=== PATIENT | female | born 1945 | race Caucasian/White ===

== ENCOUNTER 2017-10-07 19:46 | Inpatient (IN) | payer MEDICARE, MEDICAID ==
[2017-10-07 20:36] LABS: % EOSINOPHILS 0.6 % (0.0-5.0); % LYMPHOCYTES 17.8 % (20.0-50.0); % MONOCYTES 9.5 % (2.0-10.0); % NEUTROPHILS 72.1 % (40.0-80.0); EOSINOPHILE ABSOLUTE 0.1 Th/cmm (0.1-0.4); HEMATOCRIT 44.5 % (41.0-60); HEMOGLOBIN 14.8 gm/dL (12-16); MEAN CELL VOLUME 87.5 fl (81-100); MEAN CORPUSCULAR HEMOGLOBIN 29.1 pg (27.0-31.0); MEAN CORPUSCULAR HGB CONC 33.3 pg (28.0-36.0); MEAN PLATELET VOLUME 7.9 fl; MONOCYTE ABSOLUTE 1.1 Th/cmm (0.3-1.0); NEUTROPHILE ABSOLUTE 8.1 Th/cmm (1.8-8.0); PLATELET COUNT 298 Th/cmm (150-400); RED BLOOD COUNT 5.09 Mil/cmm (3.80-5.20); RED CELL DISTRIBUTION WIDTH 13.4 % (11.5-20.0); WHITE BLOOD COUNT 11.3 Th/cmm (4.8-10.8)
--- NOTE | 2017-10-07 20:58 | ED Physician Chart ---
ED Chief Complaint/HPI - Patient Information Date Seen:: 10/07/17 Time Seen:: 19:57 Chief Complaint:: Increased agitation History of Present Illness:: 72 yo female was brought from SNF to ER for evaluation of increased agitation and aggressiveness towards staff. Patient recently had negative venous u/s of bilateral lower extremities on 10/03/17. Allergies:: Allergies Allergy/AdvReac Type Severity Reaction Status Date / Time NSAIDS (Non-Steroidal Allergy Verified 10/07/17 20:02 Anti-Inflamma Penicillins Allergy Verified 10/07/17 20:02 Vitals:: Vital Signs - 8 hr 10/07/17 19:50 Temp 98.8 F HR 81 RR 18 BP 109/71 O2 Sat % 95 ED Review of Systems - Review of Systems General/Constitutional: No fever, No chills Skin: No bruising Head: No headache Eyes: No pain ENT: No nasal drainage Neck: No neck pain Cardio Vascular: No chest pain Pulmonary: No SOB, No cough GI: No nausea, No vomiting Musculoskeletal: Bone or joint pain, Back pain Neurological: No focal symptoms, Confusion ED Past Medical History - Past Medical History Past Medical History: HTN, PUD/GERD Social History: Non Smoker, No Alcohol, No Drug Use Family Medical History - Family Member Mother History Unknown: Yes ED Physical Exam - Physical Examination General/Constitutional: Awake Head: Atraumatic Eyes: PERRL Skin: No ecchymosis ENMT: Nasal exam nl Neck: No nuchal rigidity Respiratory: No Wheeze/Rhonchi/Rales Cardio Vascular: RRR, No murmur, gallop, rubs, NL S1 S2 GI: No tenderness/rebounding/guarding Extremities: normal strength in all extremities Neuro/Psych: Normal motor strength Other Neuro/Psych comments:: Oriented to self and place ED Labs/Radiology/EKG Results - Lab Results Results: Laboratory Tests 10/07/17 10/07/17 20:28 20:28 WBC 11.3 H RBC 5.09 Hgb 14.8 Hct 44.5 MCV 87.5 MCH 29.1 MCHC Differential 33.3 RDW 13.4 Plt Count 298 MPV 7.9 Neutrophils % 72.1 Lymphocytes % 17.8 L Monocytes % 9.5 Eosinophils % 0.6 Basophils % 0.0 B-Natriuretic Peptide 15.3 Laboratory Last Values WBC 11.3 Th/cmm (4.8-10.8) H 10/07/17 20: RBC 5.09 Mil/cmm (3.80-5.20) 10/07/17 20: Hgb 14.8 gm/dL (12-16) 10/07/17 20: Hct 44.5 % (41.0-60) 10/07/17 20: MCV 87.5 fl (81-100) 10/07/17: MCH 29.1 pg (27.0-31.0) 10/07/17 20: MCHC Differential 33.3 pg (28.0-36.0) 10/07/17: RDW 13.4 % (11.5-20.0) 10/07/17: Plt Count 298 Th/cmm (150-400) 10/07/17 20: MPV 7.9 fl 10/07/17 20: Neutrophils % 72.1 % (40.0-80.0) 10/07/17: Lymphocytes % 17.8 % (20.0-50.0) L 10/07/17: Monocytes % 9.5 % (2.0-10.0) 10/07/17: Eosinophils % 0.6 % (0.0-5.0) 10/07/17: Basophils % 0.0 % (0.0-2.0) 10/07/17 20: Sodium 142 mEq/L (136-145) 10/07/17: Potassium 3.7 mEq/L (3.5-5.1) 10/07/17: Chloride 104 mEq/L (98-107) 10/07/17 20: Carbon Dioxide 18.7 mEq/L (21.0-31.0) L 10/07/17: Anion Gap 23.0 (7.0-16.0) H 10/07/17 20: BUN 10 mg/dL (7-25) 10/07/17 20: Creatinine 0.7 mg/dL (0.6-1.2) 10/07/17 20: Est GFR ( Amer) TNP 10/07/17 20: Est GFR (Non-Af Amer) TNP 10/07/17 20:28 BUN/Creatinine Ratio 14.3 10/07/17 20: Glucose 121 mg/dL (70-105) H 10/07/17 20: Calcium 10.3 mg/dL (8.6-10.3) 10/07/17 20: Total Bilirubin 0.4 mg/dL (0.3-1.0) 10/07/17 20: AST 24 U/L (13-39) 10/07/17: ALT 15 U/L (7-52) 10/07/17 20: Alkaline Phosphatase 107 U/L (34-104) H 10/07/17 20: Troponin I 0.01 ng/mL (0.01-0.05) 10/07/17: B-Natriuretic Peptide 15.3 pg/mL (5.0-100.0) 10/07/17 20: Total Protein 7.4 gm/dL (6.0-8.3) 10/07/17: Albumin 4.5 gm/dL (3.7-5.3) 10/07/17 20: Globulin 2.9 gm/dL 10/07/17 20: Albumin/Globulin Ratio 1.6 (1.0-1.8) 10/07/17 20: Urine Source RANDOM 10/07/17 20:35 Urine Color YELLOW 10/07/17 20:35 Urine Clarity CLEAR (CLEAR) 10/07/17 20: Urine pH 5.5 (4.6 - 8.0) 10/07/17 20:35 Ur Specific [place] >= 1.030 (1.005-1.030) 10/07/17 20:35 Urine Protein NEGATIVE mg/dL (NEGATIVE) 10/07/17 20:35 Urine Glucose (UA) NEGATIVE mg/dL (NEGATIVE) 10/07/17 20: Urine Ketones NEGATIVE mg/dL (NEGATIVE) 10/07/17 20: Urine Blood NEGATIVE (NEGATIVE) 10/07/17 20:35 Urine Nitrate NEGATIVE (NEGATIVE) 10/07/17 20:35 Urine Bilirubin NEGATIVE (NEGATIVE) 10/07/17 20:35 Urine Urobilinogen 0.2 E.U./dL (0.2 - 1.0) 10/07/17 20:35 Ur Leukocyte Esterase NEGATIVE (NEGATIVE) 10/07/17 20:35 Urine RBC 0-2 /hpf (0-5) 10/07/17 20:35 Urine WBC 2-5 /hpf (0-5) 10/07/17 20:35 Ur Epithelial Cells FEW /lpf (FEW) 10/07/17 20:35 Urine Bacteria FEW /hpf (NONE SEEN) 10/07/17 20:35 Urine Mucus MODERATE /lpf (FEW) 10/07/17 20:35 - Radiology Results Results: CXR: no focal consolidation - EKG Interpretations EKG Time:: 20:00 Rate & Rhythm: 76 bpm, NSR [place]: normal P axis Intervals: [place] 159, QRS 80 ED Assessment - Assessment General Assessment: Hypertension Leukocytosis with unknown source Psychosis Assessment/Comments:: CBC, CMP, Trop I, BNP, UA CXR, EKG Ciprofloxacin 500mg po x 1 Admit to [facility] for further evaluation and management ED Septic Shock - . Is Septic Shock (SBP<90, OR Lactate>4 mmol\L) present?: No - <6hrs of presentation: Vital Signs: Vital Signs - 8 hr 10/07/17 19:50 Temp 98.8 F HR 81 RR 18 BP 109/71 O2 Sat % 95 ED Reassessment (Disposition) - Reassessment Reassessment Condition:: Improved - Patient Disposition Discharge/Transfer:: [facility] w/in this hosp Admitting Medical Physician:: Daniel Frances Admitting Psych Physician:: Araseli Aparicio
[2017-10-07 21:26] LABS: URINE SOURCE RANDOM
[2017-10-07 21:29] LABS: URINE BILIRUBIN NEGATIVE (NEGATIVE); URINE BLOOD NEGATIVE (NEGATIVE); URINE GLUCOSE (UA) NEGATIVE (NEGATIVE); URINE KETONE NEGATIVE (NEGATIVE); URINE LEUKOCYTE ESTERASE NEGATIVE (NEGATIVE); URINE NITRATE NEGATIVE (NEGATIVE); URINE PH 5.5 (4.6 - 8.0); URINE PROTEIN NEGATIVE (NEGATIVE); URINE UROBILINOGEN 0.2 E.U./dL (0.2 - 1.0)
[2017-10-07 21:32] LABS: URINE CLARITY CLEAR (CLEAR); URINE COLOR YELLOW; URINE MICROSCOPIC INDICATED? YES
[2017-10-07 21:43] LABS: URINE BACTERIA FEW /hpf (NONE SEEN); URINE EPITHELIAL CELLS FEW /lpf (FEW); URINE RBC 0-2 /hpf (0-5)
[2017-10-07 23:34] LABS: ALB/GLOB RATIO 1.6 (1.0-1.8); ALBUMIN 4.5 gm/dL (3.7-5.3); ALKALINE PHOSPHATASE 107 U/L (34-104); BILIRUBIN,TOTAL 0.4 mg/dL (0.3-1.0); BUN - UREA NITROGEN 10 mg/dL (7-25); CALCIUM SERUM 10.3 mg/dL (8.6-10.3); CREATININE - SERUM 0.7 mg/dL (0.6-1.2); GLUCOSE 121 mg/dL (70-105); SGOT 24 U/L (13-39); SGPT/ALT 15 U/L (7-52); TOTAL PROTEIN,SERUM 7.4 gm/dL (6.0-8.3)
[2017-10-08 01:18] LABS: CARBON DIOXIDE 18.7 mEq/L (21.0-31.0); CHLORIDE 104 mEq/L (98-107); POTASSIUM SERUM 3.7 mEq/L (3.5-5.1); SODIUM SERUM 142 mEq/L (136-145)
[2017-10-08 01:58] VITALS: BP 132/93
[2017-10-08] MEDS ORDERED: Haloperidol Lactate 5 mg/mL 1mL Vial IM PRN (05:40)
[2017-10-08] MEDS ORDERED: Fleet Enema 135 mL RC PRN (05:40)
[2017-10-08] MEDS ORDERED: Magnesium Hydroxide (MOM) 30 mL UDC PO PRN (05:40)
--- NOTE | 2017-10-08 08:29 | Diagnostic Imaging Report ---
Portable chest x-ray HISTORY: Shortness of breath The exam is limited due to patient rotation in a very poor inspiration. Despite these factors, the heart appears to be somewhat enlarged. No focal pulmonary processes. IMPRESSION: 1. Limited exam 2. No definite acute focal pulmonary processes
--- NOTE | 2017-10-08 09:06 | History and Physical ---
History of Present Illness - HPI Chief Complaint: psychosis HPI: 72 y/o female who presents to [facility] ER for change in behavior with increased agitation and aggressiveness towards staff. Patient initially labwork revealed the following .... - Lab Results Results: Laboratory Tests 10/07/17 10/07/17 20:28 20:28 WBC 11.3 H RBC 5.09 Hgb 14.8 Hct 44.5 MCV 87.5 MCH 29.1 MCHC Differential 33.3 RDW 13.4 Plt Count 298 MPV 7.9 Neutrophils % 72.1 Lymphocytes % 17.8 L Monocytes % 9.5 Eosinophils % 0.6 Basophils % 0.0 B-Natriuretic Peptide 15.3 Laboratory Last Values WBC 11.3 Th/cmm (4.8-10.8) H 10/07/17 20:28 RBC 5.09 Mil/cmm (3.80-5.20) 10/07/17 20:28 Hgb 14.8 gm/dL (12-16) 10/07/17 20:28 Hct 44.5 % (41.0-60) 10/07/17 20:28 MCV 87.5 fl (81-100) 10/07/17 20:28 MCH 29.1 pg (27.0-31.0) 10/07/17 20:28 MCHC Differential 33.3 pg (28.0-36.0) 10/07/17 20:28 RDW 13.4 % (11.5-20.0) 10/07/17 20:28 Plt Count 298 Th/cmm (150-400) 10/07/17 20:28 MPV 7.9 fl 10/07/17 20:28 Neutrophils % 72.1 % (40.0-80.0) 10/07/17 20:28 Lymphocytes % 17.8 % (20.0-50.0) L 10/07/17 20:28 Monocytes % 9.5 % (2.0-10.0) 10/07/17 20:28 Eosinophils % 0.6 % (0.0-5.0) 10/07/17 20: Basophils % 0.0 % (0.0-2.0) 10/07/17 20:28 Sodium 142 mEq/L (136-145) 10/07/17 20:28 Potassium 3.7 mEq/L (3.5-5.1) 10/07/17 20:28 Chloride 104 mEq/L (98-107) 10/07/17 20:28 Carbon Dioxide 18.7 mEq/L (21.0-31.0) L 10/07/17 20:28 Anion Gap 23.0 (7.0-16.0) H 10/07/17 20:28 BUN 10 mg/dL (7-25) 10/07/17 20:28 Creatinine 0.7 mg/dL (0.6-1.2) 10/07/17 20:28 Est GFR ( Amer) TNP 10/07/17 20:28 Est GFR (Non-Af Amer) TNP 10/07/17 20: BUN/Creatinine Ratio 14.3 10/07/17 20: Glucose 121 mg/dL (70-105) H 10/07/17 20: Calcium 10.3 mg/dL (8.6-10.3) 10/07/17 20: Total Bilirubin 0.4 mg/dL (0.3-1.0) 10/07/17 20:28 AST 24 U/L (13-39) 10/07/17 20:28 ALT 15 U/L (7-52) 10/07/17 20:28 Alkaline Phosphatase 107 U/L (34-104) H 10/07/17 20:28 Troponin I 0.01 ng/mL (0.01-0.05) 10/07/17 20: B-Natriuretic Peptide 15.3 pg/mL (5.0-100.0) 10/07/17 20:28 Total Protein 7.4 gm/dL (6.0-8.3) 10/07/17 20:28 Albumin 4.5 gm/dL (3.7-5.3) 10/07/17 20: Globulin 2.9 gm/dL 10/07/17 20: Albumin/Globulin Ratio 1.6 (1.0-1.8) 10/07/17 20:28 Urine Source RANDOM 10/07/17 20:35 Urine Color YELLOW 10/07/17 20:35 Urine Clarity CLEAR (CLEAR) 10/07/17 20:35 Urine pH 5.5 (4.6 - 8.0) 10/07/17 20:35 Ur Specific [place] >= 1.030 (1.005-1.030) 10/07/17 20:35 Urine Protein NEGATIVE mg/dL (NEGATIVE) 10/07/17 20:35 Urine Glucose (UA) NEGATIVE mg/dL (NEGATIVE) 10/07/17 20:35 Urine Ketones NEGATIVE mg/dL (NEGATIVE) 10/07/17 20:35 Urine Blood NEGATIVE (NEGATIVE) 10/07/17 20:35 Urine Nitrate NEGATIVE (NEGATIVE) 10/07/17 20:35 Urine Bilirubin NEGATIVE (NEGATIVE) 10/07/17 20:35 Urine Urobilinogen 0.2 E.U./dL (0.2 - 1.0) 10/07/17 20:35 Ur Leukocyte Esterase NEGATIVE (NEGATIVE) 10/07/17 20:35 Urine RBC 0-2 /hpf (0-5) 10/07/17 20:35 Urine WBC 2-5 /hpf (0-5) 10/07/17 20:35 Ur Epithelial Cells FEW /lpf (FEW) 10/07/17 20:35 Urine Bacteria FEW /hpf (NONE SEEN) 10/07/17 20:35 Urine Mucus MODERATE /lpf (FEW) 10/07/17 20:35 - Radiology Results Results: CXR: no focal consolidation - EKG Interpretations EKG Time:: 20:00 Rate & Rhythm: 76 bpm, NSR [place]: normal P axis Intervals: [place] 159, QRS 80 Patient was subsequently admitted to [facility] for further evaluation and treatment. 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 Pertinent Hx GI: Report: GERD, Peptic Ulcer Musculoskeletal: Report: No Pertinent Hx Rheumatologic: Report: No pertinent Hx Infectious Disease: Report: No Pertinent Hx Renal/: Report: No Pertinent Hx Endocrine: Report: No Pertinent Hx Dermatology: Report: No Pertinent Hx Family Medical History - Family Member Mother History Unknown: Yes Social History Smoke: No Alcohol: None Drugs: None Lives: Skilled Nursing - Medications Home Medications: Home Medication Medication Instructions Recorded Type Acetaminophen [Tylenol] 650 mg PO Q4HR PRN 10/07/17 History Bisacodyl [Dulcolax 10 Mg Supp] 10 mg RC DAILY PRN 10/07/17 History Calcium Carbonate [Tums] 1 tab PO Q4HR PRN 10/07/17 History Carisoprodol [Soma] 350 mg PO Q12HR PRN 10/07/17 History Fleet Enema 1 dose RC DAILY PRN 10/07/17 History Haloperidol Lactate [Haldol] 5 mg IM BID PRN 10/07/17 History Hydrocodone/APAP 10 mg/325 mg 1 tab PO Q6H PRN 10/07/17 History [[place] 10 mg/325 mg] Magnesium Hydroxide [Milk of 30 ml PO DAILY PRN 10/07/17 History Magnesia] Trazodone HCl 25 mg PO HS 10/07/17 History amLODIPine Besylate [Norvasc*] 10 mg PO DAILY 10/07/17 History - Allergies Allergies/Adverse Reactions: Allergies Allergy/AdvReac Type Severity Reaction Status Date / Time NSAIDS (Non-Steroidal Allergy Verified 10/07/17 20:02 Anti-Inflamma Penicillins Allergy Verified 10/07/17 20:02 Review of Systems - Review of Systems Constitutional: Report: No Significant Eyes: Report: No Significant ENT: Report: No Significant Respiratory: Report: No Significant Cardiovascular: Report: No Significant Gastrointestinal: Report: No Significant Genitourinary: Report: No Significant Musculoskeletal: Report: No Significant Skin: Report: No Significant Neurological: Report: No Significant Physical Exam - Physical Exam HEENT: Report: Ears Nose Throat within normal limits, Pharnyx within normal limits Neck: Report: Within normal limits Cardiovascular Systems: Report: +s1/s2 noted, Regular, Rate and Rhythm Respiratory: Report: Breath Sounds are within normal limits Abdomen: Report: Non-tender to palpation Back: Report: Inspection of back is within normal limits. Extremities: Report: Non-tender to palpation. Skin: Report: Color of skin is within normal limits Neuro/Psych: Report: Mood affect is within normal limits, A+Ox3 - Lab Results All Lab Results last 24 hours: Laboratory Results - last 24 hr 10/07/17 10/07/17 10/07/17 20:28 20:28 20:28 WBC 11.3 H RBC 5.09 Hgb 14.8 Hct 44.5 MCV 87.5 MCH 29.1 MCHC Differential 33.3 RDW 13.4 Plt Count 298 MPV 7.9 Neutrophils % 72.1 Lymphocytes % 17.8 L Monocytes % 9.5 Eosinophils % 0.6 Basophils % 0.0 Sodium 142 Potassium 3.7 Chloride 104 Carbon Dioxide 18.7 L Anion Gap 23.0 H BUN 10 Creatinine 0.7 Est GFR ( Amer) TNP Est GFR (Non-Af Amer) TNP BUN/Creatinine Ratio 14.3 Glucose 121 H Calcium 10.3 Total Bilirubin 0.4 AST 24 ALT 15 Alkaline Phosphatase 107 H Troponin I B-Natriuretic Peptide 15.3 Total Protein 7.4 Albumin 4.5 Globulin 2.9 Albumin/Globulin Ratio 1.6 Urine Source Urine Color Urine Clarity Urine pH Ur Specific [place] Urine Protein Urine Glucose (UA) Urine Ketones Urine Blood Urine Nitrate Urine Bilirubin Urine Urobilinogen Ur Leukocyte Esterase Urine RBC Urine WBC Ur Epithelial Cells Urine Bacteria Urine Mucus 10/07/17 10/07/17 20:28 20:35 WBC RBC Hgb Hct MCV MCH MCHC Differential RDW Plt Count MPV Neutrophils % Lymphocytes % Monocytes % Eosinophils % Basophils % Sodium Potassium Chloride Carbon Dioxide Anion Gap BUN Creatinine Est GFR ( Amer) Est GFR (Non-Af Amer) BUN/Creatinine Ratio Glucose Calcium Total Bilirubin AST ALT Alkaline Phosphatase Troponin I 0.01 B-Natriuretic Peptide Total Protein Albumin Globulin Albumin/Globulin Ratio Urine Source RANDOM Urine Color YELLOW Urine Clarity CLEAR Urine pH 5.5 Ur Specific [place] >= 1.030 Urine Protein NEGATIVE Urine Glucose (UA) NEGATIVE Urine Ketones NEGATIVE Urine Blood NEGATIVE Urine Nitrate NEGATIVE Urine Bilirubin NEGATIVE Urine Urobilinogen 0.2 Ur Leukocyte Esterase NEGATIVE Urine RBC 0-2 Urine WBC 2-5 Ur Epithelial Cells FEW Urine Bacteria FEW Urine Mucus MODERATE - Assessment Assessment: Psychosis Leukocytosis HTN - Plan Plan: admit to [facility]
[2017-10-08 09:50] LABS: % BASOPHILS 2.4 % (0.0-2.0); % EOSINOPHILS 0.8 % (0.0-5.0); % LYMPHOCYTES 22.4 % (20.0-50.0); % MONOCYTES 6.5 % (2.0-10.0); % NEUTROPHILS 67.9 % (40.0-80.0); BASOPHILE ABSOLUTE 0.2 Th/cumm (0-0.2); EOSINOPHILE ABSOLUTE 0.1 Th/cmm (0.1-0.4); HEMATOCRIT 44.4 % (41.0-60); HEMOGLOBIN 14.5 gm/dL (12-16); LYMPHOCYTE ABSOLUTE 1.9 Th/cmm (1.5-3.0); MEAN CELL VOLUME 88.4 fl (81-100); MEAN CORPUSCULAR HGB CONC 32.8 pg (28.0-36.0); MEAN PLATELET VOLUME 7.9 fl; MONOCYTE ABSOLUTE 0.6 Th/cmm (0.3-1.0); NEUTROPHILE ABSOLUTE 5.7 Th/cmm (1.8-8.0); PLATELET COUNT 298 Th/cmm (150-400); RED BLOOD COUNT 5.02 Mil/cmm (3.80-5.20); RED CELL DISTRIBUTION WIDTH 13.6 % (11.5-20.0)
[2017-10-08 09:53] LABS: WHITE BLOOD COUNT 8.5 Th/cmm (4.8-10.8)
[2017-10-08] MEDS: Hydrocodone/APAP 10 mg/325 mg Tab PO PRN ×2 (13:13→21:20)
[2017-10-09] MEDS: Hydrocodone/APAP 10 mg/325 mg Tab PO PRN ×4 (03:21→22:33)
--- NOTE | 2017-10-09 08:20 | General Progress Note ---
Subjective - Review of Systems Service Date: 10/09/17 Subjective: Awake, alert, no acute distress T 97.5 P 70 BP 116/81 R 18 Objective - Results Result Diagrams: 10/08/17 09:40 10/07/17 20:28 Recent Labs: Laboratory Last Values WBC 8.5 Th/cmm (4.8-10.8) D 10/08/17 09:40 RBC 5.02 Mil/cmm (3.80-5.20) 10/08/17 09:40 Hgb 14.5 gm/dL (12-16) 10/08/17 09:40 Hct 44.4 % (41.0-60) 10/08/17 09:40 MCV 88.4 fl (81-100) 10/08/17 09:40 MCH 29.0 pg (27.0-31.0) 10/08/17 09:40 MCHC Differential 32.8 pg (28.0-36.0) 10/08/17 09:40 RDW 13.6 % (11.5-20.0) 10/08/17 09:40 Plt Count 298 Th/cmm (150-400) 10/08/17 09:40 MPV 7.9 fl 10/08/17 09:40 Neutrophils % 67.9 % (40.0-80.0) 10/08/17 09:40 Lymphocytes % 22.4 % (20.0-50.0) 10/08/17 09:40 Monocytes % 6.5 % (2.0-10.0) 10/08/17 09:40 Eosinophils % 0.8 % (0.0-5.0) 10/08/17 09:40 Basophils % 2.4 % (0.0-2.0) H 10/08/17 09:40 Sodium 142 mEq/L (136-145) 10/07/17 20:28 Potassium 3.7 mEq/L (3.5-5.1) 10/07/17 20:28 Chloride 104 mEq/L (98-107) 10/07/17 20:28 Carbon Dioxide 18.7 mEq/L (21.0-31.0) L 10/07/17 20:28 Anion Gap 23.0 (7.0-16.0) H 10/07/17 20:28 BUN 10 mg/dL (7-25) 10/07/17 20:28 Creatinine 0.7 mg/dL (0.6-1.2) 10/07/17 20:28 Est GFR ( Amer) TNP 10/07/17 20:28 Est GFR (Non-Af Amer) TNP 10/07/17 20:28 BUN/Creatinine Ratio 14.3 10/07/17 20:28 Glucose 121 mg/dL (70-105) H 10/07/17 20:28 POC Glucose 141 MG/DL (70-105) H 10/08/17 00:15 Calcium 10.3 mg/dL (8.6-10.3) 10/07/17 20: Total Bilirubin 0.4 mg/dL (0.3-1.0) 10/07/17 20: AST 24 U/L (13-39) 10/07/17 20:28 ALT 15 U/L (7-52) 10/07/17 20:28 Alkaline Phosphatase 107 U/L (34-104) H 10/07/17 20:28 Troponin I 0.01 ng/mL (0.01-0.05) 10/07/17 20:28 B-Natriuretic Peptide 15.3 pg/mL (5.0-100.0) 10/07/17 20:28 Total Protein 7.4 gm/dL (6.0-8.3) 10/07/17 20: Albumin 4.5 gm/dL (3.7-5.3) 10/07/17 20: Globulin 2.9 gm/dL 10/07/17 20: Albumin/Globulin Ratio 1.6 (1.0-1.8) 10/07/17 20:28 Urine Source RANDOM 10/07/17 20:35 Urine Color YELLOW 10/07/17 20:35 Urine Clarity CLEAR (CLEAR) 10/07/17 20:35 Urine pH 5.5 (4.6 - 8.0) 10/07/17 20:35 Ur Specific [place] >= 1.030 (1.005-1.030) 10/07/17 20:35 Urine Protein NEGATIVE mg/dL (NEGATIVE) 10/07/17 20:35 Urine Glucose (UA) NEGATIVE mg/dL (NEGATIVE) 10/07/17 20: Urine Ketones NEGATIVE mg/dL (NEGATIVE) 10/07/17 20:35 Urine Blood NEGATIVE (NEGATIVE) 10/07/17 20:35 Urine Nitrate NEGATIVE (NEGATIVE) 10/07/17 20:35 Urine Bilirubin NEGATIVE (NEGATIVE) 10/07/17 20:35 Urine Urobilinogen 0.2 E.U./dL (0.2 - 1.0) 10/07/17 20:35 Ur Leukocyte Esterase NEGATIVE (NEGATIVE) 10/07/17 20:35 Urine RBC 0-2 /hpf (0-5) 10/07/17 20:35 Urine WBC 2-5 /hpf (0-5) 10/07/17 20:35 Ur Epithelial Cells FEW /lpf (FEW) 10/07/17 20:35 Urine Bacteria FEW /hpf (NONE SEEN) 10/07/17 20:35 Urine Mucus MODERATE /lpf (FEW) 10/07/17 20:35 - Physical Exam Vitals and I&O: Vital Signs Temp 97.5 F 10/09/17 06:52 Pulse 70 10/09/17 06:52 Resp 18 10/09/17 06:52 BP 116/81 10/09/17 06:52 Pulse Ox 98 10/09/17 06:52 Intake & Output 10/08/17 10/09/17 10/09/17 18:59 06:59 18:59 Intake Total 800 120 Balance 800 120 Intake: Oral 800 120 Other: # Voids 3 3 # Bowel Movements 1 Active Medications: Current Medications Acetaminophen (Tylenol) 650 mg PO Q4HR PRN PRN Reason: Pain or Fever >101 Stop: 12/07/17 05:39 Last Admin: 10/08/17 09:50 Dose: 650 mg Acetaminophen/Hydrocodone Bitart ([place] 10 Mg/325 Mg) 1 tab PO Q6H PRN PRN Reason: Pain (Severe) Stop: 12/07/17 05:39 Last Admin: 10/09/17 03:21 Dose: 1 tab Amlodipine Besylate (Norvasc) 10 mg PO DAILY [place] Stop: 12/07/17 08:59 Last Admin: 10/08/17 09:50 Dose: 10 mg Bisacodyl (Dulcolax 10 Mg Supp) 10 mg RC DAILY PRN PRN Reason: Constipation Stop: 12/07/17 05:39 Calcium Carbonate (Tums) 500 mg PO Q4HR PRN PRN Reason: GI DISTRESS Stop: 12/07/17 05:39 Carisoprodol (Soma) 350 mg PO Q12HR PRN PRN Reason: Pain (Severe) Stop: 12/07/17 05:39 Last Admin: 10/08/17 16:33 Dose: 350 mg Haloperidol Lactate (Haldol) 5 mg IM BID PRN PRN Reason: Agitation Stop: 12/07/17 05:39 Lorazepam (Ativan) 0.5 mg PO Q4HR PRN; Protocol PRN Reason: Anxiety Stop: 11/07/17 01:58 Magnesium Hydroxide (Milk Of Magnesia) 30 ml PO DAILY PRN PRN Reason: Constipation Stop: 12/07/17 05:39 Quetiapine Fumarate (Seroquel) 12.5 mg PO BID [facility]; Protocol Stop: 12/07/17 08:59 Last Admin: 10/08/17 16:33 Dose: 12.5 mg Sodium Phosphate (Fleet Enema) 135 ml RC DAILY PRN PRN Reason: Constipation Stop: 12/07/17 05:39 Trazodone HCl (Desyrel) 25 mg PO HS [place]; Protocol Stop: 12/07/17 20:59 Last Admin: 10/08/17 21:13 Dose: 25 mg Zolpidem Tartrate (Ambien) 5 mg PO HS PRN PRN Reason: Insomnia Stop: 12/07/17 00:44 General: Alert, No acute distress HEENT: Atraumatic, PERRLA, EOMI Neck: Supple, no JVD, no Thyromegaly Cardiovascular: Regular rate, Normal S1, Normal S2 Lungs: Clear to auscultation Abdomen: Bowel sounds, Soft, no Distended Extremities: no Clubbing, no Cyanosis, no Edema Neurological: Normal gait Assessment/Plan - Assessment Assessment: Psychosis Leukocytosis HTN - Plan Plan: admit to [facility]
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
--- NOTE | 2017-10-09 22:03 | Progress Notes ---
DATE: SUBJECTIVE: Chart reviewed and the patient interviewed. Also discussed the patient's condition with the staff and reviewed records and labs. The patient is still in angry and in irritable mood. The patient also is still suspicious and still paranoid. The patient also still needs redirection. The patient also has been minimizing her symptoms and she has been suspicious and has been paranoid. Otherwise, the patient is compliant with taking her medications with no side effects of medications. The patient has been med seeking and has been asking for pain medications and also for "Soma." In spite of the patient has been taking Soma and she is still asking for more. Otherwise, the patient is cooperative and compliant with taking her medications with no side effects. ASSESSMENT: The patient is still paranoid. TREATMENT PLAN: We will continue to monitor behavior and condition closely. Also, we will Cymbalta in a dose of 30 mg every day. We will continue to follow up. JOB# [id number]
[2017-10-10] MEDS: Hydrocodone/APAP 10 mg/325 mg Tab PO PRN ×3 (04:55→20:13)
--- NOTE | 2017-10-10 08:23 | General Progress Note ---
Subjective - Review of Systems Service Date: 10/10/17 Subjective: Awake, alert, no acute distress T 98.3 P 88 BP 144/84 R 20 Objective - Results Result Diagrams: 10/08/17 09:40 10/07/17 20:28 Recent Labs: Laboratory Last Values WBC 8.5 Th/cmm (4.8-10.8) D 10/08/17 09:40 RBC 5.02 Mil/cmm (3.80-5.20) 10/08/17 09:40 Hgb 14.5 gm/dL (12-16) 10/08/17 09:40 Hct 44.4 % (41.0-60) 10/08/17 09:40 MCV 88.4 fl (81-100) 10/08/17 09:40 MCH 29.0 pg (27.0-31.0) 10/08/17 09:40 MCHC Differential 32.8 pg (28.0-36.0) 10/08/17 09:40 RDW 13.6 % (11.5-20.0) 10/08/17 09:40 Plt Count 298 Th/cmm (150-400) 10/08/17 09:40 MPV 7.9 fl 10/08/17 09:40 Neutrophils % 67.9 % (40.0-80.0) 10/08/17 09:40 Lymphocytes % 22.4 % (20.0-50.0) 10/08/17 09:40 Monocytes % 6.5 % (2.0-10.0) 10/08/17 09:40 Eosinophils % 0.8 % (0.0-5.0) 10/08/17 09:40 Basophils % 2.4 % (0.0-2.0) H 10/08/17 09:40 Sodium 142 mEq/L (136-145) 10/07/17 20:28 Potassium 3.7 mEq/L (3.5-5.1) 10/07/17 20:28 Chloride 104 mEq/L (98-107) 10/07/17 20:28 Carbon Dioxide 18.7 mEq/L (21.0-31.0) L 10/07/17 20:28 Anion Gap 23.0 (7.0-16.0) H 10/07/17 20:28 BUN 10 mg/dL (7-25) 10/07/17 20:28 Creatinine 0.7 mg/dL (0.6-1.2) 10/07/17 20:28 Est GFR ( Amer) TNP 10/07/17 20:28 Est GFR (Non-Af Amer) TNP 10/07/17 20:28 BUN/Creatinine Ratio 14.3 10/07/17 20:28 Glucose 121 mg/dL (70-105) H 10/07/17 20:28 POC Glucose 141 MG/DL (70-105) H 10/08/17 00:15 Calcium 10.3 mg/dL (8.6-10.3) 10/07/17 20: Total Bilirubin 0.4 mg/dL (0.3-1.0) 10/07/17 20: AST 24 U/L (13-39) 10/07/17 20:28 ALT 15 U/L (7-52) 10/07/17 20:28 Alkaline Phosphatase 107 U/L (34-104) H 10/07/17 20:28 Troponin I 0.01 ng/mL (0.01-0.05) 10/07/17 20:28 B-Natriuretic Peptide 15.3 pg/mL (5.0-100.0) 10/07/17 20:28 Total Protein 7.4 gm/dL (6.0-8.3) 10/07/17 20: Albumin 4.5 gm/dL (3.7-5.3) 10/07/17 20: Globulin 2.9 gm/dL 10/07/17 20: Albumin/Globulin Ratio 1.6 (1.0-1.8) 10/07/17 20:28 Urine Source RANDOM 10/07/17 20:35 Urine Color YELLOW 10/07/17 20:35 Urine Clarity CLEAR (CLEAR) 10/07/17 20:35 Urine pH 5.5 (4.6 - 8.0) 10/07/17 20:35 Ur Specific [place] >= 1.030 (1.005-1.030) 10/07/17 20:35 Urine Protein NEGATIVE mg/dL (NEGATIVE) 10/07/17 20:35 Urine Glucose (UA) NEGATIVE mg/dL (NEGATIVE) 10/07/17 20: Urine Ketones NEGATIVE mg/dL (NEGATIVE) 10/07/17 20:35 Urine Blood NEGATIVE (NEGATIVE) 10/07/17 20:35 Urine Nitrate NEGATIVE (NEGATIVE) 10/07/17 20:35 Urine Bilirubin NEGATIVE (NEGATIVE) 10/07/17 20:35 Urine Urobilinogen 0.2 E.U./dL (0.2 - 1.0) 10/07/17 20:35 Ur Leukocyte Esterase NEGATIVE (NEGATIVE) 10/07/17 20:35 Urine RBC 0-2 /hpf (0-5) 10/07/17 20:35 Urine WBC 2-5 /hpf (0-5) 10/07/17 20:35 Ur Epithelial Cells FEW /lpf (FEW) 10/07/17 20:35 Urine Bacteria FEW /hpf (NONE SEEN) 10/07/17 20:35 Urine Mucus MODERATE /lpf (FEW) 10/07/17 20:35 - Physical Exam Vitals and I&O: Vital Signs Temp 98.3 F 10/09/17 14:00 Pulse 88 10/09/17 14:00 Resp 20 10/09/17 14:00 BP 144/84 10/09/17 14:00 Pulse Ox 96 10/09/17 14:00 Intake & Output 10/09/17 10/10/17 10/10/17 18:59 06:59 18:59 Intake Total 960 Balance 960 Intake: Oral 960 Other: # Voids 4 # Bowel Movements 1 Active Medications: Current Medications Acetaminophen (Tylenol) 650 mg PO Q4HR PRN PRN Reason: Pain or Fever >101 Stop: 12/07/17 05:39 Last Admin: 10/08/17 09:50 Dose: 650 mg Acetaminophen/Hydrocodone Bitart ([place] 10 Mg/325 Mg) 1 tab PO Q6H PRN PRN Reason: Pain (Severe) Stop: 12/07/17 05:39 Last Admin: 10/10/17 04:55 Dose: 1 tab Amlodipine Besylate (Norvasc) 10 mg PO DAILY [facility] Stop: 12/07/17 08:59 Last Admin: 10/09/17 09:30 Dose: Not Given Bisacodyl (Dulcolax 10 Mg Supp) 10 mg RC DAILY PRN PRN Reason: Constipation Stop: 12/07/17 05:39 Calcium Carbonate (Tums) 500 mg PO Q4HR PRN PRN Reason: GI DISTRESS Stop: 12/07/17 05:39 Carisoprodol (Soma) 350 mg PO Q12HR PRN PRN Reason: Pain (Severe) Stop: 12/07/17 05:39 Last Admin: 10/09/17 20:29 Dose: 350 mg Duloxetine HCl (Cymbalta) 30 mg PO BID [facility]; Protocol Stop: 12/09/17 08:59 Haloperidol Lactate (Haldol) 5 mg IM BID PRN PRN Reason: Agitation Stop: 12/07/17 05:39 Lorazepam (Ativan) 0.5 mg PO Q4HR PRN; Protocol PRN Reason: Anxiety Stop: 11/07/17 01:58 Last Admin: 10/09/17 08:14 Dose: 0.5 mg Magnesium Hydroxide (Milk Of Magnesia) 30 ml PO DAILY PRN PRN Reason: Constipation Stop: 12/07/17 05:39 Mupirocin (Bactroban Oint) 1 appl NS BID [facility] Stop: 10/14/17 17:01 Quetiapine Fumarate (Seroquel) 12.5 mg PO BID [facility]; Protocol Stop: 12/07/17 08:59 Last Admin: 10/09/17 16:30 Dose: 12.5 mg Sodium Phosphate (Fleet Enema) 135 ml RC DAILY PRN PRN Reason: Constipation Stop: 12/07/17 05:39 Trazodone HCl (Desyrel) 25 mg PO HS [facility]; Protocol Stop: 12/07/17 20:59 Last Admin: 10/09/17 20:23 Dose: 25 mg Zolpidem Tartrate (Ambien) 5 mg PO HS PRN PRN Reason: Insomnia Stop: 12/07/17 00:44 General: Alert, No acute distress HEENT: Atraumatic, PERRLA, EOMI Neck: Supple, no JVD, no Thyromegaly Cardiovascular: Regular rate, Normal S1, Normal S2 Lungs: Clear to auscultation Abdomen: Bowel sounds, Soft, no Distended Extremities: no Clubbing, no Cyanosis, no Edema Neurological: Normal gait Assessment/Plan - Assessment Assessment: Psychosis Leukocytosis ... improved 8K HTN ... slightly elevated will add clonidine PO - Plan Plan: admit to [facility]
--- NOTE | 2017-10-10 08:43 | Diagnostic Imaging Report ---
Right hip (2 views) HISTORY: Pain, trauma No acute bony abnormalities are seen. No fractures. The femoral head retains a normal contour. Joint space appears normal. Degenerative changes seen in the visualized lower lumbar spine. IMPRESSION: No acute abnormalities
--- NOTE | 2017-10-10 08:43 | Diagnostic Imaging Report ---
Left hip (2 views) HISTORY: Pain, trauma No acute bony abnormalities. No fractures seen at this time. The femoral head exhibits a normal contour. IMPRESSION: No acute bony abnormalities
--- NOTE | 2017-10-11 00:41 | Progress Notes ---
DATE: SUBJECTIVE: Chart reviewed and the patient interviewed. Also discussed the patient's condition with the staff and reviewed records and labs. The patient is still anxious. She is still in a depressed mood and the patient is still med seeking. The patient also seems that she threw herself on the floor yesterday and was crawling on the floor. The patient also is still easily agitated and she still needs to be monitored closely. Otherwise, the patient started on Cymbalta and no side effects. ASSESSMENT: The patient is still depressed and she is still exhibiting medication seeking behavior. TREATMENT PLAN: We will continue to monitor her behavior and her condition closely. Also, working on her ineffective coping and also on her behavioral issues. Also, we will increase Cymbalta to 30 mg twice a day and we will continue to follow up closely. JOB# [id number]
--- NOTE | 2017-10-11 06:11 | General Progress Note ---
Subjective - Review of Systems Service Date: 10/11/17 Subjective: Awake, alert, no acute distress T 98.2 P 77 BP 138/92 R 20 Objective - Results Result Diagrams: 10/08/17 09:40 10/07/17 20:28 Recent Labs: Laboratory Last Values WBC 8.5 Th/cmm (4.8-10.8) D 10/08/17 09:40 RBC 5.02 Mil/cmm (3.80-5.20) 10/08/17 09:40 Hgb 14.5 gm/dL (12-16) 10/08/17 09:40 Hct 44.4 % (41.0-60) 10/08/17 09:40 MCV 88.4 fl (81-100) 10/08/17 09:40 MCH 29.0 pg (27.0-31.0) 10/08/17 09:40 MCHC Differential 32.8 pg (28.0-36.0) 10/08/17 09:40 RDW 13.6 % (11.5-20.0) 10/08/17 09:40 Plt Count 298 Th/cmm (150-400) 10/08/17 09:40 MPV 7.9 fl 10/08/17 09:40 Neutrophils % 67.9 % (40.0-80.0) 10/08/17 09:40 Lymphocytes % 22.4 % (20.0-50.0) 10/08/17 09:40 Monocytes % 6.5 % (2.0-10.0) 10/08/17 09:40 Eosinophils % 0.8 % (0.0-5.0) 10/08/17 09:40 Basophils % 2.4 % (0.0-2.0) H 10/08/17 09:40 Sodium 142 mEq/L (136-145) 10/07/17 20:28 Potassium 3.7 mEq/L (3.5-5.1) 10/07/17 20:28 Chloride 104 mEq/L (98-107) 10/07/17 20:28 Carbon Dioxide 18.7 mEq/L (21.0-31.0) L 10/07/17 20:28 Anion Gap 23.0 (7.0-16.0) H 10/07/17 20:28 BUN 10 mg/dL (7-25) 10/07/17 20:28 Creatinine 0.7 mg/dL (0.6-1.2) 10/07/17 20:28 Est GFR ( Amer) TNP 10/07/17 20:28 Est GFR (Non-Af Amer) TNP 10/07/17 20:28 BUN/Creatinine Ratio 14.3 10/07/17 20:28 Glucose 121 mg/dL (70-105) H 10/07/17 20:28 POC Glucose 103 MG/DL (70 - 105) 10/10/17 16:52 Calcium 10.3 mg/dL (8.6-10.3) 10/07/17 20:28 Total Bilirubin 0.4 mg/dL (0.3-1.0) 10/07/17 20: AST 24 U/L (13-39) 10/07/17 20:28 ALT 15 U/L (7-52) 10/07/17 20:28 Alkaline Phosphatase 107 U/L (34-104) H 10/07/17 20:28 Troponin I 0.01 ng/mL (0.01-0.05) 10/07/17 20:28 B-Natriuretic Peptide 15.3 pg/mL (5.0-100.0) 10/07/17 20:28 Total Protein 7.4 gm/dL (6.0-8.3) 10/07/17 20: Albumin 4.5 gm/dL (3.7-5.3) 10/07/17 20: Globulin 2.9 gm/dL 10/07/17 20: Albumin/Globulin Ratio 1.6 (1.0-1.8) 10/07/17 20:28 Urine Source RANDOM 10/07/17 20:35 Urine Color YELLOW 10/07/17 20:35 Urine Clarity CLEAR (CLEAR) 10/07/17 20:35 Urine pH 5.5 (4.6 - 8.0) 10/07/17 20:[address] [place] >= 1.030 (1.005-1.030) 10/07/17 20:35 Urine Protein NEGATIVE mg/dL (NEGATIVE) 10/07/17 20:35 Urine Glucose (UA) NEGATIVE mg/dL (NEGATIVE) 10/07/17 20: Urine Ketones NEGATIVE mg/dL (NEGATIVE) 10/07/17 20:35 Urine Blood NEGATIVE (NEGATIVE) 10/07/17 20:35 Urine Nitrate NEGATIVE (NEGATIVE) 10/07/17 20:35 Urine Bilirubin NEGATIVE (NEGATIVE) 10/07/17 20:35 Urine Urobilinogen 0.2 E.U./dL (0.2 - 1.0) 10/07/17 20:35 Ur Leukocyte Esterase NEGATIVE (NEGATIVE) 10/07/17 20:35 Urine RBC 0-2 /hpf (0-5) 10/07/17 20:35 Urine WBC 2-5 /hpf (0-5) 10/07/17 20:35 Ur Epithelial Cells FEW /lpf (FEW) 10/07/17 20:35 Urine Bacteria FEW /hpf (NONE SEEN) 10/07/17 20:35 Urine Mucus MODERATE /lpf (FEW) 10/07/17 20:35 - Physical Exam Vitals and I&O: Vital Signs Temp 98.2 F 10/10/17 20:46 Pulse 77 10/10/17 20:46 Resp 20 10/10/17 20:46 BP 138/92 10/10/17 20:46 Pulse Ox 96 10/10/17 20:46 Intake & Output 10/10/17 10/10/17 10/11/17 06:59 18:59 06:59 Intake Total 1200 240 Balance 1200 240 Intake: Oral 1200 240 Other: # Voids 1 # Bowel Movements 1 Active Medications: Current Medications Acetaminophen (Tylenol) 650 mg PO Q4HR PRN PRN Reason: Pain or Fever >101 Stop: 12/07/17 05:39 Last Admin: 10/08/17 09:50 Dose: 650 mg Acetaminophen/Hydrocodone Bitart ([place] 10 Mg/325 Mg) 1 tab PO Q6H PRN PRN Reason: Pain (Severe) Stop: 12/07/17 05:39 Last Admin: 10/10/17 20:13 Dose: 1 tab Amlodipine Besylate (Norvasc) 10 mg PO DAILY [facility] Stop: 12/07/17 08:59 Last Admin: 10/10/17 09:14 Dose: 10 mg Bisacodyl (Dulcolax 10 Mg Supp) 10 mg RC DAILY PRN PRN Reason: Constipation Stop: 12/07/17 05:39 Calcium Carbonate (Tums) 500 mg PO Q4HR PRN PRN Reason: GI DISTRESS Stop: 12/07/17 05:39 Carisoprodol (Soma) 350 mg PO Q12HR PRN PRN Reason: Pain (Severe) Stop: 12/07/17 05:39 Last Admin: 10/10/17 22:27 Dose: 350 mg Duloxetine HCl (Cymbalta) 30 mg PO BID [facility]; Protocol Stop: 12/09/17 08:59 Last Admin: 10/10/17 16:38 Dose: 30 mg Haloperidol Lactate (Haldol) 5 mg IM BID PRN PRN Reason: Agitation Stop: 12/07/17 05:39 Lorazepam (Ativan) 0.5 mg PO Q4HR PRN; Protocol PRN Reason: Anxiety Stop: 11/07/17 01:58 Last Admin: 10/09/17 08:14 Dose: 0.5 mg Magnesium Hydroxide (Milk Of Magnesia) 30 ml PO DAILY PRN PRN Reason: Constipation Stop: 12/07/17 05:39 Mupirocin (Bactroban Oint) 1 appl NS BID [facility] Stop: 10/14/17 17:01 Last Admin: 10/10/17 16:46 Dose: 1 appl Quetiapine Fumarate (Seroquel) 12.5 mg PO BID [facility]; Protocol Stop: 12/07/17 08:59 Last Admin: 10/10/17 16:38 Dose: 12.5 mg Sodium Phosphate (Fleet Enema) 135 ml RC DAILY PRN PRN Reason: Constipation Stop: 12/07/17 05:39 Trazodone HCl (Desyrel) 25 mg PO HS [facility]; Protocol Stop: 12/07/17 20:59 Last Admin: 10/10/17 20:12 Dose: 25 mg Zolpidem Tartrate (Ambien) 5 mg PO HS PRN PRN Reason: Insomnia Stop: 12/07/17 00:44 Last Admin: 10/10/17 20:12 Dose: 5 mg General: Alert, No acute distress HEENT: Atraumatic, PERRLA, EOMI Neck: Supple, no JVD, no Thyromegaly Cardiovascular: Regular rate, Normal S1, Normal S2 Lungs: Clear to auscultation Abdomen: Bowel sounds, Soft, no Distended Extremities: no Clubbing, no Cyanosis, no Edema Neurological: Normal gait Assessment/Plan - Assessment Assessment: Psychosis Leukocytosis ... improved 8K HTN ... slightly elevated will add clonidine PO - Plan Plan: admit to [facility] Nutritional Asmnt/Malnutr-PDOC - Dietary Evaluation Malnutrition Findings (Please click <Entered> for more info): Nutritional Asmnt/Malnutrition Start: 10/10/17 14: 14 Text: Status: Complete Freq: Protocol: Document 10/10/17 14:14 LCMERLYNG (Rec: 10/10/17 14:23 [id number] Nutritional Asmnt/Malnutrition Patient General Information Nutritional Screening Moderate Risk Diagnosis psychosis NOS Pertinent Medical Hx/Surgical Hx HTN, GERD, peptic ulcer Subjective Information Pt seen lying in bed at time of visit, awake. Pt reported she is upset and does not want to eat at this time. Food preference provided to RD. Current Diet Order/ Nutrition Support NERY Pertinent Medications seroquel Pertinent Labs 10/07 glucose 121 10/08 POC 141 Nutritional Hx/Data Height 1.42 m Height (Calculated Centimeters) 142.2 Current Weight (lbs) 48.081 kg Weight (Calculated Kilograms) 48.1 Weight (Calculated Grams) 43931.8 [place] Body Weight 92 Body Mass Index (BMI) 23.8 Weight Status Approriate GI Symptoms GI Symptoms None Last BM 10/09 Difficult in: None Skin Integrity/Comment: intact Estimated Nutritional Goals BEE in Kcals: Using Current wt Calories/Kcals/Kg 25-30 Kcals Calculated 1821-8075 Protein: Using Current wt Protein g/k Protein Calculated 48 Fluid: ml 1200-1440ml (1ml/kcal) Nutritional Problem No current Nutrition Prob Problem NA Malnutrition Alert Is there a minimum of two criteria No selected? Query Text:Check all the applicable criteria. A minimum of two criteria are recommended for diagnosis of either severe or non-severe malnutrition. Malnutrition Related to Morbid Obesity Malnutrition related to morbid obesity No Intervention/Recommendation Comments 1. Continue with NERY diet as ordered. 2. Monitor PO intake, wt, labs and skin integrity 3. F/U as low risk in 7 days, 10/17, PO check 10/13 Expected Outcomes/Goals Expected Outcomes/Goals 1. PO intake to meet at least 75% of nutritional needs. 2. Wt stability, skin to remain intact, labs to approach WNL.
--- NOTE | 2017-10-11 07:30 | Progress Notes ---
DATE: 10/11/2017 SUBJECTIVE: The patient is currently in the hospital, anxious, throwing herself on the floor, crawling on the floor, easily agitated, odd behaviors. On [id number], the patient essentially refusing to speak with me, telling me to come back later. The patient is coming in from [place], increased aggressive behaviors, not following directions, history of depression. Medications were noted. ASSESSMENT: The patient remains symptomatic, bizarre behaviors, throwing herself on the ground, requiring a higher level of prompting, redirections, staff monitoring and impulsivity. We will continue to monitor the patient with ongoing symptoms indicative that she is not safe for a lower level of care, still yelling at times, yelling for help at times. We will monitor and follow up. JOB# [id number]
[2017-10-11] MEDS: Hydrocodone/APAP 10 mg/325 mg Tab PO PRN (10:23)
[2017-10-12] MEDS: Hydrocodone/APAP 10 mg/325 mg Tab PO PRN ×3 (04:30→16:53)
--- NOTE | 2017-10-12 05:43 | General Progress Note ---
Subjective - Review of Systems Service Date: 10/12/17 Subjective: Awake, alert, no acute distress T 98.7 P 61 BP 111/76 R 19 Objective - Results Result Diagrams: 10/08/17 09:40 10/07/17 20:28 Recent Labs: Laboratory Last Values WBC 8.5 Th/cmm (4.8-10.8) D 10/08/17 09:40 RBC 5.02 Mil/cmm (3.80-5.20) 10/08/17 09:40 Hgb 14.5 gm/dL (12-16) 10/08/17 09:40 Hct 44.4 % (41.0-60) 10/08/17 09:40 MCV 88.4 fl (81-100) 10/08/17 09:40 MCH 29.0 pg (27.0-31.0) 10/08/17 09:40 MCHC Differential 32.8 pg (28.0-36.0) 10/08/17 09:40 RDW 13.6 % (11.5-20.0) 10/08/17 09:40 Plt Count 298 Th/cmm (150-400) 10/08/17 09:40 MPV 7.9 fl 10/08/17 09:40 Neutrophils % 67.9 % (40.0-80.0) 10/08/17 09:40 Lymphocytes % 22.4 % (20.0-50.0) 10/08/17 09:40 Monocytes % 6.5 % (2.0-10.0) 10/08/17 09:40 Eosinophils % 0.8 % (0.0-5.0) 10/08/17 09:40 Basophils % 2.4 % (0.0-2.0) H 10/08/17 09:40 Sodium 142 mEq/L (136-145) 10/07/17 20:28 Potassium 3.7 mEq/L (3.5-5.1) 10/07/17 20:28 Chloride 104 mEq/L (98-107) 10/07/17 20:28 Carbon Dioxide 18.7 mEq/L (21.0-31.0) L 10/07/17 20:28 Anion Gap 23.0 (7.0-16.0) H 10/07/17 20:28 BUN 10 mg/dL (7-25) 10/07/17 20:28 Creatinine 0.7 mg/dL (0.6-1.2) 10/07/17 20:28 Est GFR ( Amer) TNP 10/07/17 20:28 Est GFR (Non-Af Amer) TNP 10/07/17 20:28 BUN/Creatinine Ratio 14.3 10/07/17 20:28 Glucose 121 mg/dL (70-105) H 10/07/17 20:28 POC Glucose 103 MG/DL (70 - 105) 10/10/17 16:52 Calcium 10.3 mg/dL (8.6-10.3) 10/07/17 20:28 Total Bilirubin 0.4 mg/dL (0.3-1.0) 10/07/17 20: AST 24 U/L (13-39) 10/07/17 20:28 ALT 15 U/L (7-52) 10/07/17 20:28 Alkaline Phosphatase 107 U/L (34-104) H 10/07/17 20:28 Troponin I 0.01 ng/mL (0.01-0.05) 10/07/17 20:28 B-Natriuretic Peptide 15.3 pg/mL (5.0-100.0) 10/07/17 20:28 Total Protein 7.4 gm/dL (6.0-8.3) 10/07/17 20: Albumin 4.5 gm/dL (3.7-5.3) 10/07/17 20: Globulin 2.9 gm/dL 10/07/17 20: Albumin/Globulin Ratio 1.6 (1.0-1.8) 10/07/17 20:28 Urine Source RANDOM 10/07/17 20:35 Urine Color YELLOW 10/07/17 20:35 Urine Clarity CLEAR (CLEAR) 10/07/17 20:35 Urine pH 5.5 (4.6 - 8.0) 10/07/17 20:35 Ur Specific [place] >= 1.030 (1.005-1.030) 10/07/17 20:35 Urine Protein NEGATIVE mg/dL (NEGATIVE) 10/07/17 20:35 Urine Glucose (UA) NEGATIVE mg/dL (NEGATIVE) 10/07/17 20: Urine Ketones NEGATIVE mg/dL (NEGATIVE) 10/07/17 20:35 Urine Blood NEGATIVE (NEGATIVE) 10/07/17 20:35 Urine Nitrate NEGATIVE (NEGATIVE) 10/07/17 20:35 Urine Bilirubin NEGATIVE (NEGATIVE) 10/07/17 20:35 Urine Urobilinogen 0.2 E.U./dL (0.2 - 1.0) 10/07/17 20:35 Ur Leukocyte Esterase NEGATIVE (NEGATIVE) 10/07/17 20:35 Urine RBC 0-2 /hpf (0-5) 10/07/17 20:35 Urine WBC 2-5 /hpf (0-5) 10/07/17 20:35 Ur Epithelial Cells FEW /lpf (FEW) 10/07/17 20:35 Urine Bacteria FEW /hpf (NONE SEEN) 10/07/17 20:35 Urine Mucus MODERATE /lpf (FEW) 10/07/17 20:35 - Physical Exam Vitals and I&O: Vital Signs Temp 98.7 F 10/11/17 20:00 Pulse 61 10/11/17 20:00 Resp 19 10/11/17 20:00 BP 111/76 10/11/17 20:00 Pulse Ox 97 10/11/17 20:00 Intake & Output 10/11/17 10/11/17 10/12/17 06:59 18:59 06:59 Intake Total 240 800 Balance 240 800 Intake: Oral 240 800 Other: # Voids 3 3 # Bowel Movements 0 1 Active Medications: Current Medications Acetaminophen (Tylenol) 650 mg PO Q4HR PRN PRN Reason: Pain or Fever >101 Stop: 12/07/17 05:39 Last Admin: 10/08/17 09:50 Dose: 650 mg Acetaminophen/Hydrocodone Bitart ([place] 10 Mg/325 Mg) 1 tab PO Q6H PRN PRN Reason: Pain (Severe) Stop: 12/07/17 05:39 Last Admin: 10/12/17 04:30 Dose: 1 tab Amlodipine Besylate (Norvasc) 10 mg PO DAILY [facility] Stop: 12/07/17 08:59 Last Admin: 10/11/17 09:55 Dose: Not Given Bisacodyl (Dulcolax 10 Mg Supp) 10 mg RC DAILY PRN PRN Reason: Constipation Stop: 12/07/17 05:39 Calcium Carbonate (Tums) 500 mg PO Q4HR PRN PRN Reason: GI DISTRESS Stop: 12/07/17 05:39 Carisoprodol (Soma) 350 mg PO Q12HR PRN PRN Reason: Pain (Severe) Stop: 12/07/17 05:39 Last Admin: 10/11/17 21:37 Dose: 350 mg Duloxetine HCl (Cymbalta) 30 mg PO BID [facility]; Protocol Stop: 12/09/17 08:59 Last Admin: 10/11/17 09:56 Dose: Not Given Haloperidol Lactate (Haldol) 5 mg IM BID PRN PRN Reason: Agitation Stop: 12/07/17 05:39 Lorazepam (Ativan) 0.5 mg PO Q4HR PRN; Protocol PRN Reason: Anxiety Stop: 11/07/17 01:58 Last Admin: 10/09/17 08:14 Dose: 0.5 mg Magnesium Hydroxide (Milk Of Magnesia) 30 ml PO DAILY PRN PRN Reason: Constipation Stop: 12/07/17 05:39 Mupirocin (Bactroban Oint) 1 appl NS BID [facility] Stop: 10/14/17 17:01 Last Admin: 10/11/17 09:56 Dose: 1 appl Quetiapine Fumarate (Seroquel) 12.5 mg PO BID [facility]; Protocol Stop: 12/07/17 08:59 Last Admin: 10/11/17 09:57 Dose: 12.5 mg Sodium Phosphate (Fleet Enema) 135 ml RC DAILY PRN PRN Reason: Constipation Stop: 12/07/17 05:39 Trazodone HCl (Desyrel) 25 mg PO HS [facility]; Protocol Stop: 12/07/17 20:59 Last Admin: 10/11/17 21:38 Dose: 25 mg Zolpidem Tartrate (Ambien) 5 mg PO HS PRN PRN Reason: Insomnia Stop: 12/07/17 00:44 Last Admin: 10/11/17 21:37 Dose: 5 mg General: Alert, No acute distress HEENT: Atraumatic, PERRLA, EOMI Neck: Supple, no JVD, no Thyromegaly Cardiovascular: Regular rate, Normal S1, Normal S2 Lungs: Clear to auscultation Abdomen: Bowel sounds, Soft, no Distended Extremities: no Clubbing, no Cyanosis, no Edema Neurological: Normal gait Assessment/Plan - Assessment Assessment: Psychosis Leukocytosis ... improved 8K HTN ... slightly elevated will add clonidine PO - Plan Plan: admit to [facility] Nutritional Asmnt/Malnutr-PDOC - Dietary Evaluation Malnutrition Findings (Please click <Entered> for more info): Nutritional Asmnt/Malnutrition Start: 10/10/17 14: 14 Text: Status: Complete Freq: Protocol: Document 10/10/17 14:14 LCMERLYNG (Rec: 10/10/17 14:23 MERLYN [email or web address]) Nutritional Asmnt/Malnutrition Patient General Information Nutritional Screening Moderate Risk Diagnosis psychosis NOS Pertinent Medical Hx/Surgical Hx HTN, GERD, peptic ulcer Subjective Information Pt seen lying in bed at time of visit, awake. Pt reported she is upset and does not want to eat at this time. Food preference provided to RD. Current Diet Order/ Nutrition Support NERY Pertinent Medications seroquel Pertinent Labs 10/07 glucose 121 10/08 POC 141 Nutritional Hx/Data Height 1.42 m Height (Calculated Centimeters) 142.2 Current Weight (lbs) 48.081 kg Weight (Calculated Kilograms) 48.1 Weight (Calculated Grams) 93017.8 [place] Body Weight 92 Body Mass Index (BMI) 23.8 Weight Status Approriate GI Symptoms GI Symptoms None Last BM 10/09 Difficult in: None Skin Integrity/Comment: intact Estimated Nutritional Goals BEE in Kcals: Using Current wt Calories/Kcals/Kg 25-30 Kcals Calculated 9624-6409 Protein: Using Current wt Protein g/k Protein Calculated 48 Fluid: ml 1200-1440ml (1ml/kcal) Nutritional Problem No current Nutrition Prob Problem NA Malnutrition Alert Is there a minimum of two criteria No selected? Query Text:Check all the applicable criteria. A minimum of two criteria are recommended for diagnosis of either severe or non-severe malnutrition. Malnutrition Related to Morbid Obesity Malnutrition related to morbid obesity No Intervention/Recommendation Comments 1. Continue with NERY diet as ordered. 2. Monitor PO intake, wt, labs and skin integrity 3. F/U as low risk in 7 days, 10/17, PO check 10/13 Expected Outcomes/Goals Expected Outcomes/Goals 1. PO intake to meet at least 75% of nutritional needs. 2. Wt stability, skin to remain intact, labs to approach WNL.
--- NOTE | 2017-10-12 06:46 | Progress Notes ---
DATE: 10/12/2017 SUBJECTIVE: The patient in the hospital, anxious, periods of throwing herself on the floor. Staff concerned due to drug-seeking behaviors. The patient is AO to name. She knows the year. She is not quite sure about why she is here asking multiple times why she is here. She knows the month. She states she lives in [place] and is demanding rehabilitation. Staff concerned because of her behaviors, seeking behaviors, drug-seeking behaviors, easily irritated, sometimes demanding. ASSESSMENT: The patient remains irritable, odd behaviors at some point falling on the ground and crawling on the ground. Medications were noted including dosages and frequencies. We will continue to monitor. Staff is mindful of her drug-seeking behaviors. We are monitoring her closely. JOB# [id number]
[2017-10-12 17:52] LABS: URINE SOURCE CLEAN C
[2017-10-12 17:57] LABS: URINE BILIRUBIN NEGATIVE (NEGATIVE); URINE BLOOD NEGATIVE (NEGATIVE); URINE CLARITY CLEAR (CLEAR); URINE COLOR YELLOW; URINE GLUCOSE (UA) NEGATIVE (NEGATIVE); URINE KETONE NEGATIVE (NEGATIVE); URINE PROTEIN NEGATIVE (NEGATIVE); URINE UROBILINOGEN 0.2 E.U./dL (0.2 - 1.0)
[2017-10-12 17:58] LABS: URINE LEUKOCYTE ESTERASE NEGATIVE (NEGATIVE); URINE MICROSCOPIC INDICATED? YES; URINE NITRATE NEGATIVE (NEGATIVE)
[2017-10-12 17:59] LABS: URINE EPITHELIAL CELLS MODERATE /lpf (FEW); URINE RBC 0-2 /hpf (0-5)
[2017-10-12 18:00] LABS: URINE AMORPHOUS SEDIMENT MODERATE PHOSPHATES (NONE SEEN); URINE BACTERIA FEW /hpf (NONE SEEN)
[2017-10-13] MEDS: Hydrocodone/APAP 10 mg/325 mg Tab PO PRN ×4 (00:50→23:10)
--- NOTE | 2017-10-13 08:17 | General Progress Note ---
Subjective - Review of Systems Service Date: 10/13/17 Subjective: Awake, alert, no acute distress T 98.0 P 60 BP 99/59 R 19 Objective - Results Result Diagrams: 10/08/17 09:40 10/07/17 20:28 Recent Labs: Laboratory Last Values WBC 8.5 Th/cmm (4.8-10.8) D 10/08/17 09:40 RBC 5.02 Mil/cmm (3.80-5.20) 10/08/17 09:40 Hgb 14.5 gm/dL (12-16) 10/08/17 09:40 Hct 44.4 % (41.0-60) 10/08/17 09:40 MCV 88.4 fl (81-100) 10/08/17 09:40 MCH 29.0 pg (27.0-31.0) 10/08/17 09:40 MCHC Differential 32.8 pg (28.0-36.0) 10/08/17 09:40 RDW 13.6 % (11.5-20.0) 10/08/17 09:40 Plt Count 298 Th/cmm (150-400) 10/08/17 09:40 MPV 7.9 fl 10/08/17 09:40 Neutrophils % 67.9 % (40.0-80.0) 10/08/17 09:40 Lymphocytes % 22.4 % (20.0-50.0) 10/08/17 09:40 Monocytes % 6.5 % (2.0-10.0) 10/08/17 09:40 Eosinophils % 0.8 % (0.0-5.0) 10/08/17 09:40 Basophils % 2.4 % (0.0-2.0) H 10/08/17 09:40 Sodium 142 mEq/L (136-145) 10/07/17 20:28 Potassium 3.7 mEq/L (3.5-5.1) 10/07/17 20:28 Chloride 104 mEq/L (98-107) 10/07/17 20:28 Carbon Dioxide 18.7 mEq/L (21.0-31.0) L 10/07/17 20:28 Anion Gap 23.0 (7.0-16.0) H 10/07/17 20:28 BUN 10 mg/dL (7-25) 10/07/17 20:28 Creatinine 0.7 mg/dL (0.6-1.2) 10/07/17 20:28 Est GFR ( Amer) TNP 10/07/17 20:28 Est GFR (Non-Af Amer) TNP 10/07/17 20:28 BUN/Creatinine Ratio 14.3 10/07/17 20:28 Glucose 121 mg/dL (70-105) H 10/07/17 20:28 POC Glucose 103 MG/DL (70 - 105) 10/10/17 16:52 Calcium 10.3 mg/dL (8.6-10.3) 10/07/17 20:28 Total Bilirubin 0.4 mg/dL (0.3-1.0) 10/07/17 20:28 AST 24 U/L (13-39) 10/07/17 20:28 ALT 15 U/L (7-52) 10/07/17 20:28 Alkaline Phosphatase 107 U/L (34-104) H 10/07/17 20:28 Troponin I 0.01 ng/mL (0.01-0.05) 10/07/17 20:28 B-Natriuretic Peptide 15.3 pg/mL (5.0-100.0) 10/07/17 20:28 Total Protein 7.4 gm/dL (6.0-8.3) 10/07/17 20:28 Albumin 4.5 gm/dL (3.7-5.3) 10/07/17 20:28 Globulin 2.9 gm/dL 10/07/17 20:28 Albumin/Globulin Ratio 1.6 (1.0-1.8) 10/07/17 20:28 Urine Source CLEAN C 10/12/17 17:41 Urine Color YELLOW 10/12/17 17:41 Urine Clarity CLEAR (CLEAR) 10/12/17 17:41 Urine pH 8.0 (4.6 - 8.0) 10/12/17 17:41 Ur Specific [place] 1.010 (1.005-1.030) 10/12/17 17:41 Urine Protein NEGATIVE mg/dL (NEGATIVE) 10/12/17 17:41 Urine Glucose (UA) NEGATIVE mg/dL (NEGATIVE) 10/12/17 17:41 Urine Ketones NEGATIVE mg/dL (NEGATIVE) 10/12/17 17:41 Urine Blood NEGATIVE (NEGATIVE) 10/12/17 17:41 Urine Nitrate NEGATIVE (NEGATIVE) 10/12/17 17:41 Urine Bilirubin NEGATIVE (NEGATIVE) 10/12/17 17:41 Urine Urobilinogen 0.2 E.U./dL (0.2 - 1.0) 10/12/17 17:41 Ur Leukocyte Esterase NEGATIVE (NEGATIVE) 10/12/17 17:41 Urine RBC 0-2 /hpf (0-5) 10/12/17 17:41 Urine WBC 2-5 /hpf (0-5) 10/12/17 17:41 Ur Epithelial Cells MODERATE /lpf (FEW) 10/12/17 17:41 Amorphous Sediment MODERATE PHOSPHATES (NONE SEEN) 10/12/17 17:41 Urine Bacteria FEW /hpf (NONE SEEN) 10/12/17 17:41 Urine Mucus MODERATE /lpf (FEW) 10/07/17 20:35 - Physical Exam Vitals and I&O: Vital Signs Temp 98.0 F 10/13/17 05:49 Pulse 60 10/13/17 05:49 Resp 19 10/13/17 05:49 BP 99/59 10/13/17 05:49 Pulse Ox 92 10/13/17 05:49 Intake & Output 10/12/17 10/13/17 10/13/17 18:59 06:59 18:59 Intake Total 800 240 Balance 800 240 Intake: Oral 800 240 Other: # Voids 3 2 # Bowel Movements 1 0 Active Medications: Current Medications Acetaminophen (Tylenol) 650 mg PO Q4HR PRN PRN Reason: Pain or Fever >101 Stop: 12/07/17 05:39 Last Admin: 10/08/17 09:50 Dose: 650 mg Acetaminophen/Hydrocodone Bitart ([place] 10 Mg/325 Mg) 1 tab PO Q6H PRN PRN Reason: Pain (Severe) Stop: 12/07/17 05:39 Last Admin: 10/13/17 00:50 Dose: 1 tab Amlodipine Besylate (Norvasc) 10 mg PO DAILY [facility]ISS Stop: 12/07/17 08:59 Last Admin: 10/12/17 09:37 Dose: Not Given Bisacodyl (Dulcolax 10 Mg Supp) 10 mg RC DAILY PRN PRN Reason: Constipation Stop: 12/07/17 05:39 Calcium Carbonate (Tums) 500 mg PO Q4HR PRN PRN Reason: GI DISTRESS Stop: 12/07/17 05:39 Carisoprodol (Soma) 350 mg PO Q12HR PRN PRN Reason: Pain (Severe) Stop: 12/07/17 05:39 Last Admin: 10/13/17 00:24 Dose: 350 mg Duloxetine HCl (Cymbalta) 30 mg PO BID [facility]; Protocol Stop: 12/09/17 08:59 Last Admin: 10/12/17 16:52 Dose: 30 mg Haloperidol Lactate (Haldol) 5 mg IM BID PRN PRN Reason: Agitation Stop: 12/07/17 05:39 Lorazepam (Ativan) 0.5 mg PO Q4HR PRN; Protocol PRN Reason: Anxiety Stop: 11/07/17 01:58 Last Admin: 10/09/17 08:14 Dose: 0.5 mg Magnesium Hydroxide (Milk Of Magnesia) 30 ml PO DAILY PRN PRN Reason: Constipation Stop: 12/07/17 05:39 Mupirocin (Bactroban Oint) 1 appl NS BID [facility] Stop: 10/14/17 17:01 Last Admin: 10/12/17 16:52 Dose: 1 appl Quetiapine Fumarate (Seroquel) 12.5 mg PO BID [facility]; Protocol Stop: 12/07/17 08:59 Last Admin: 10/12/17 16:52 Dose: 12.5 mg Sodium Phosphate (Fleet Enema) 135 ml RC DAILY PRN PRN Reason: Constipation Stop: 12/07/17 05:39 Trazodone HCl (Desyrel) 25 mg PO HS [facility]; Protocol Stop: 12/07/17 20:59 Last Admin: 10/12/17 20:37 Dose: 25 mg Zolpidem Tartrate (Ambien) 5 mg PO HS PRN PRN Reason: Insomnia Stop: 12/07/17 00:44 Last Admin: 10/11/17 21:37 Dose: 5 mg General: Alert, No acute distress HEENT: Atraumatic, PERRLA, EOMI Neck: Supple, no JVD, no Thyromegaly Cardiovascular: Regular rate, Normal S1, Normal S2 Lungs: Clear to auscultation Abdomen: Bowel sounds, Soft, no Distended Extremities: no Clubbing, no Cyanosis, no Edema Neurological: Normal gait Assessment/Plan - Assessment Assessment: Psychosis Leukocytosis ... better HTN ... improved - Plan Plan: admit to ger[facility] Nutritional Asmnt/Malnutr-PDOC - Dietary Evaluation Malnutrition Findings (Please click <Entered> for more info): Nutritional Asmnt/Malnutrition Start: 10/10/17 14: 14 Text: Status: Complete Freq: Protocol: Document 10/10/17 14:14 LCMERLYNG (Rec: 10/10/17 14:23 [email or web address] Nutritional Asmnt/Malnutrition Patient General Information Nutritional Screening Moderate Risk Diagnosis psychosis NOS Pertinent Medical Hx/Surgical Hx HTN, GERD, peptic ulcer Subjective Information Pt seen lying in bed at time of visit, awake. Pt reported she is upset and does not want to eat at this time. Food preference provided to RD. Current Diet Order/ Nutrition Support NERY Pertinent Medications seroquel Pertinent Labs 10/07 glucose 121 10/08 POC 141 Nutritional Hx/Data Height 1.42 m Height (Calculated Centimeters) 142.2 Current Weight (lbs) 48.081 kg Weight (Calculated Kilograms) 48.1 Weight (Calculated Grams) 73307.8 [place] Body Weight 92 Body Mass Index (BMI) 23.8 Weight Status Approriate GI Symptoms GI Symptoms None Last BM 10/09 Difficult in: None Skin Integrity/Comment: intact Estimated Nutritional Goals BEE in Kcals: Using Current wt Calories/Kcals/Kg 25-30 Kcals Calculated 7750-5045 Protein: Using Current wt Protein g/k Protein Calculated 48 Fluid: ml 1200-1440ml (1ml/kcal) Nutritional Problem No current Nutrition Prob Problem NA Malnutrition Alert Is there a minimum of two criteria No selected? Query Text:Check all the applicable criteria. A minimum of two criteria are recommended for diagnosis of either severe or non-severe malnutrition. Malnutrition Related to Morbid Obesity Malnutrition related to morbid obesity No Intervention/Recommendation Comments 1. Continue with NERY diet as ordered. 2. Monitor PO intake, wt, labs and skin integrity 3. F/U as low risk in 7 days, 10/17, PO check 10/13 Expected Outcomes/Goals Expected Outcomes/Goals 1. PO intake to meet at least 75% of nutritional needs. 2. Wt stability, skin to remain intact, labs to approach WNL.
--- NOTE | 2017-10-13 09:24 | Diagnostic Imaging Report ---
Right shoulder (2 views) HISTORY: Pain, trauma No acute bony abnormality. Specifically, no fracture identified. Irregularity and subcortical cyst formation noted along the lateral aspect of the humeral head. Findings consistent with a degenerative etiology. No dislocation. IMPRESSION: 1. No acute abnormalities 2. Degenerative changes
[2017-10-14] MEDS: Hydrocodone/APAP 10 mg/325 mg Tab PO PRN ×4 (05:10→22:45)
--- NOTE | 2017-10-14 08:17 | General Progress Note ---
Subjective - Review of Systems Service Date: 10/14/17 Subjective: Awake, alert, no acute distress T 98.4 P 59 BP 112/78 R 20 Objective - Results Result Diagrams: 10/08/17 09:40 10/07/17 20:28 Recent Labs: Laboratory Last Values WBC 8.5 Th/cmm (4.8-10.8) D 10/08/17 09:40 RBC 5.02 Mil/cmm (3.80-5.20) 10/08/17 09:40 Hgb 14.5 gm/dL (12-16) 10/08/17 09:40 Hct 44.4 % (41.0-60) 10/08/17 09:40 MCV 88.4 fl (81-100) 10/08/17 09:40 MCH 29.0 pg (27.0-31.0) 10/08/17 09:40 MCHC Differential 32.8 pg (28.0-36.0) 10/08/17 09:40 RDW 13.6 % (11.5-20.0) 10/08/17 09:40 Plt Count 298 Th/cmm (150-400) 10/08/17 09:40 MPV 7.9 fl 10/08/17 09:40 Neutrophils % 67.9 % (40.0-80.0) 10/08/17 09:40 Lymphocytes % 22.4 % (20.0-50.0) 10/08/17 09:40 Monocytes % 6.5 % (2.0-10.0) 10/08/17 09:40 Eosinophils % 0.8 % (0.0-5.0) 10/08/17 09:40 Basophils % 2.4 % (0.0-2.0) H 10/08/17 09:40 Sodium 142 mEq/L (136-145) 10/07/17 20:28 Potassium 3.7 mEq/L (3.5-5.1) 10/07/17 20:28 Chloride 104 mEq/L (98-107) 10/07/17 20:28 Carbon Dioxide 18.7 mEq/L (21.0-31.0) L 10/07/17 20:28 Anion Gap 23.0 (7.0-16.0) H 10/07/17 20:28 BUN 10 mg/dL (7-25) 10/07/17 20:28 Creatinine 0.7 mg/dL (0.6-1.2) 10/07/17 20:28 Est GFR ( Amer) TNP 10/07/17 20:28 Est GFR (Non-Af Amer) TNP 10/07/17 20:28 BUN/Creatinine Ratio 14.3 10/07/17 20:28 Glucose 121 mg/dL (70-105) H 10/07/17 20:28 POC Glucose 103 MG/DL (70 - 105) 10/10/17 16:52 Calcium 10.3 mg/dL (8.6-10.3) 10/07/17 20:28 Total Bilirubin 0.4 mg/dL (0.3-1.0) 10/07/17 20:28 AST 24 U/L (13-39) 10/07/17 20:28 ALT 15 U/L (7-52) 10/07/17 20:28 Alkaline Phosphatase 107 U/L (34-104) H 10/07/17 20:28 Troponin I 0.01 ng/mL (0.01-0.05) 10/07/17 20:28 B-Natriuretic Peptide 15.3 pg/mL (5.0-100.0) 10/07/17 20:28 Total Protein 7.4 gm/dL (6.0-8.3) 10/07/17 20:28 Albumin 4.5 gm/dL (3.7-5.3) 10/07/17 20:28 Globulin 2.9 gm/dL 10/07/17 20:28 Albumin/Globulin Ratio 1.6 (1.0-1.8) 10/07/17 20:28 Urine Source CLEAN C 10/12/17 17:41 Urine Color YELLOW 10/12/17 17:41 Urine Clarity CLEAR (CLEAR) 10/12/17 17:41 Urine pH 8.0 (4.6 - 8.0) 10/12/17 17:41 Ur Specific [place] 1.010 (1.005-1.030) 10/12/17 17:41 Urine Protein NEGATIVE mg/dL (NEGATIVE) 10/12/17 17:41 Urine Glucose (UA) NEGATIVE mg/dL (NEGATIVE) 10/12/17 17:41 Urine Ketones NEGATIVE mg/dL (NEGATIVE) 10/12/17 17:41 Urine Blood NEGATIVE (NEGATIVE) 10/12/17 17:41 Urine Nitrate NEGATIVE (NEGATIVE) 10/12/17 17:41 Urine Bilirubin NEGATIVE (NEGATIVE) 10/12/17 17:41 Urine Urobilinogen 0.2 E.U./dL (0.2 - 1.0) 10/12/17 17:41 Ur Leukocyte Esterase NEGATIVE (NEGATIVE) 10/12/17 17:41 Urine RBC 0-2 /hpf (0-5) 10/12/17 17:41 Urine WBC 2-5 /hpf (0-5) 10/12/17 17:41 Ur Epithelial Cells MODERATE /lpf (FEW) 10/12/17 17:41 Amorphous Sediment MODERATE PHOSPHATES (NONE SEEN) 10/12/17 17:41 Urine Bacteria FEW /hpf (NONE SEEN) 10/12/17 17:41 Urine Mucus MODERATE /lpf (FEW) 10/07/17 20:35 - Physical Exam Vitals and I&O: Vital Signs Temp 98.4 F 10/14/17 06:15 Pulse 59 10/14/17 06:15 Resp 20 10/14/17 06:15 BP 112/78 10/14/17 06:15 Pulse Ox 98 10/14/17 06:15 Intake & Output 10/13/17 10/14/17 10/14/17 18:59 06:59 18:59 Intake Total 900 120 Balance 900 120 Intake: Oral 900 120 Other: # Voids 4 3 # Bowel Movements 1 0 Active Medications: Current Medications Acetaminophen (Tylenol) 650 mg PO Q4HR PRN PRN Reason: Pain or Fever >101 Stop: 12/07/17 05:39 Last Admin: 10/08/17 09:50 Dose: 650 mg Acetaminophen/Hydrocodone Bitart ([place] 10 Mg/325 Mg) 1 tab PO Q6H PRN PRN Reason: Pain (Severe) Stop: 12/07/17 05:39 Last Admin: 10/14/17 05:10 Dose: 1 tab Amlodipine Besylate (Norvasc) 10 mg PO DAILY [facility] Stop: 12/07/17 08:59 Last Admin: 10/13/17 09:00 Dose: Not Given Bisacodyl (Dulcolax 10 Mg Supp) 10 mg RC DAILY PRN PRN Reason: Constipation Stop: 12/07/17 05:39 Calcium Carbonate (Tums) 500 mg PO Q4HR PRN PRN Reason: GI DISTRESS Stop: 12/07/17 05:39 Carisoprodol (Soma) 350 mg PO Q12HR PRN PRN Reason: Pain (Severe) Stop: 12/07/17 05:39 Last Admin: 10/14/17 00:58 Dose: 350 mg Duloxetine HCl (Cymbalta) 30 mg PO BID [facility]; Protocol Stop: 12/09/17 08:59 Last Admin: 10/13/17 17:01 Dose: 30 mg Haloperidol Lactate (Haldol) 5 mg IM BID PRN PRN Reason: Agitation Stop: 12/07/17 05:39 Lorazepam (Ativan) 0.5 mg PO Q4HR PRN; Protocol PRN Reason: Anxiety Stop: 11/07/17 01:58 Last Admin: 10/09/17 08:14 Dose: 0.5 mg Magnesium Hydroxide (Milk Of Magnesia) 30 ml PO DAILY PRN PRN Reason: Constipation Stop: 12/07/17 05:39 Mupirocin (Bactroban Oint) 1 appl NS BID [facility] Stop: 10/14/17 17:01 Last Admin: 10/13/17 17:02 Dose: 1 appl Quetiapine Fumarate (Seroquel) 12.5 mg PO BID [facility]; Protocol Stop: 12/12/17 16:59 Last Admin: 10/13/17 17:02 Dose: 12.5 mg Sodium Phosphate (Fleet Enema) 135 ml RC DAILY PRN PRN Reason: Constipation Stop: 12/07/17 05:39 Trazodone HCl (Desyrel) 25 mg PO HS [facility]; Protocol Stop: 12/07/17 20:59 Last Admin: 10/13/17 20:38 Dose: 25 mg Zolpidem Tartrate (Ambien) 5 mg PO HS PRN PRN Reason: Insomnia Stop: 12/07/17 00:44 Last Admin: 10/11/17 21:37 Dose: 5 mg General: Alert, No acute distress HEENT: Atraumatic, PERRLA, EOMI Neck: Supple, no JVD, no Thyromegaly Cardiovascular: Regular rate, Normal S1, Normal S2 Lungs: Clear to auscultation Abdomen: Bowel sounds, Soft, no Distended Extremities: no Clubbing, no Cyanosis, no Edema Neurological: Normal gait Assessment/Plan - Assessment Assessment: Psychosis Leukocytosis ... better HTN ... improved - Plan Plan: admit to ger[facility] Nutritional Asmnt/Malnutr-PDOC - Dietary Evaluation Malnutrition Findings (Please click <Entered> for more info): Nutritional Asmnt/Malnutrition Start: 10/10/17 14: 14 Text: Status: Complete Freq: Protocol: Document 10/10/17 14:14 LCMERLYNG (Rec: 10/10/17 14:23 [facility] Nutritional Asmnt/Malnutrition Patient General Information Nutritional Screening Moderate Risk Diagnosis psychosis NOS Pertinent Medical Hx/Surgical Hx HTN, GERD, peptic ulcer Subjective Information Pt seen lying in bed at time of visit, awake. Pt reported she is upset and does not want to eat at this time. Food preference provided to RD. Current Diet Order/ Nutrition Support NERY Pertinent Medications seroquel Pertinent Labs 10/07 glucose 121 10/08 POC 141 Nutritional Hx/Data Height 1.42 m Height (Calculated Centimeters) 142.2 Current Weight (lbs) 48.081 kg Weight (Calculated Kilograms) 48.1 Weight (Calculated Grams) 13583.8 [place] Body Weight 92 Body Mass Index (BMI) 23.8 Weight Status Approriate GI Symptoms GI Symptoms None Last BM 10/09 Difficult in: None Skin Integrity/Comment: intact Estimated Nutritional Goals BEE in Kcals: Using Current wt Calories/Kcals/Kg 25-30 Kcals Calculated 9787-7014 Protein: Using Current wt Protein g/k Protein Calculated 48 Fluid: ml 1200-1440ml (1ml/kcal) Nutritional Problem No current Nutrition Prob Problem NA Malnutrition Alert Is there a minimum of two criteria No selected? Query Text:Check all the applicable criteria. A minimum of two criteria are recommended for diagnosis of either severe or non-severe malnutrition. Malnutrition Related to Morbid Obesity Malnutrition related to morbid obesity No Intervention/Recommendation Comments 1. Continue with NERY diet as ordered. 2. Monitor PO intake, wt, labs and skin integrity 3. F/U as low risk in 7 days, 10/17, PO check 10/13 Expected Outcomes/Goals Expected Outcomes/Goals 1. PO intake to meet at least 75% of nutritional needs. 2. Wt stability, skin to remain intact, labs to approach WNL.
--- NOTE | 2017-10-14 22:47 | Discharge Summary ---
DATE OF DISCHARGE: 10/14/2017 DATE OF DISCHARGE: 10/14/2017. AGE: 72. SEX: Female. PHYSICIAN: Dr. Aparicio. FINAL DIAGNOSIS: PRIMARY DIAGNOSIS: Depressive disorder, unspecified, with psychotic features. SECONDARY DIAGNOSIS: Unspecified psychosis. REASON FOR HOSPITALIZATION: The patient was admitted to the hospital from [facility] [place] because of increased agitation and irritability and paranoia and accusing staff with things that does not exist. HOSPITAL COURSE: The patient continued to be manipulative and continued accusing staff with things that are unreal. She also continued to have multiple somatic complaints and was off the ____. The patient is medication seeking. She also was in irritable and angry mood and suspicious and paranoid. She also was withdrawn and interacted minimally with others. The patient was given Cymbalta in a dose of 30 mg twice a day and Haldol 5 mg twice a day. She continued to be in irritable and angry mood as well as depressed. She also continued to have multiple somatic complaints. Seroquel was added in a dose of 12.5 mg twice a day. Gradually, the patient's affect was brighter. The patient was less irritable and less agitated and the patient was discharged from the hospital. PHYSICAL EXAMINATION: Showed that the patient has hypertension. Otherwise, no major medical problems. AFTER DISCHARGE PLANS: The patient discharged from the hospital with plans to continue treatment as an outpatient in [facility]. EXPECTED OUTCOME AFTER DISCHARGE: Fair if the patient continues to take her psychotropic medications and continue to work on her ineffective coping. [facility]# [id number]
--- NOTE | 2017-10-15 00:04 | Progress Notes ---
DATE: 10/13/2017 SUBJECTIVE: Chart reviewed and the patient interviewed. Also, discussed the patient's condition with the staff and reviewed records and labs. The patient is still manipulative and she is still in irritable and angry mood. The patient said "I landed here by mistake." She also is still complaining of pain in different area of her body and she is still psychotraumatic and she is still asking for more pain medications. The patient also is still having episodes of anger. Otherwise, the patient is compliant with taking her medications. She also at times has been accusing staff with different things that not confirmed and it seems that because of her paranoia and manipulation. ASSESSMENT: The patient is still agitated and needs close monitoring. TREATMENT PLAN: Continue to monitor her condition and her current medications closely. Also, continue to work on her manipulation and her pain management and continue to follow up. [facility]# [id number]
[2017-10-15] MEDS: Hydrocodone/APAP 10 mg/325 mg Tab PO PRN (08:57)
--- NOTE | 2017-10-15 13:00 | Progress Notes ---
DATE: 10/15/[address] Aparicio. Case was discussed with staff of the patient, reviewed records. The patient apparently was supposed to have been discharged yesterday; however, is somehow the staff reports ____ waiting for placement for her. Sleeping better, eating better. The staff described her medication seeking. She is denying any current intent to harm himself or anybody. She denies any auditory or visual hallucination or paranoia. No side effects with the medication, no sedation, no nausea, no extrapyramidal symptoms. We will continue outpatient group therapy, milieu therapy, adjust medications. JOB# [id number]
== END 2017-10-15 13:45 | DRG 885 ==
LOC: ER 19:46 → GERO 23:12
PROVIDERS: ADMIT Psychiatry & Neurology Psychiatry; ATTEND Psychiatry & Neurology Psychiatry
DX: F32.3 Major depressive disorder, single episode, severe with psychotic features (principal); F29 Unspecified psychosis not due to a substance or known physiological condition; D72.829 Elevated white blood cell count, unspecified; I10 Essential (primary) hypertension; K21.9 Gastro-esophageal reflux disease without esophagitis; Z88.0 Allergy status to penicillin; Z88.8 Allergy status to other drugs, medicaments and biological substances; Z79.899 Other long term (current) drug therapy
CPT/HCPCS: 36415-UA; 71045-TC; 73030-TC-RT; 73501; 80053-TC; 81001-TC; 82948-90; 83880-TC; 84484-TC; 85025-TC; 93005; 97530; J0696; X3904; Z7610